=== PATIENT | male | born 1980 | race Caucasian/White ===

== ENCOUNTER 2018-09-08 13:23 | Outpatient (CLI) | payer OTHER ==
--- NOTE | 2018-09-08 16:04 | NM ---
EXAM: NM Hida Scan W Drug PROVIDED CLINICAL HISTORY: Right upper quadrant abdominal pain. COMPARISON: None FINDINGS: There is prompt uptake and excretion radiotracer by the liver. Bowel activity is faintly visualized b y approximately 11 minutes. Gallbladder activity is visualized by approximately 36 minutes with increasing activity in the gallbladder imaging up to 60 minutes. After 60 minutes of imaging, 8 ounce s of Ensure was administered by mouth. A gallbladder ejection fraction of 86% was obtained. Normal gallbladder ejection fraction is greater than 33%. IMPRESSION: 1. No evidence of a cystic or common duct obstruction. 2. Normal gallbladder ejection fraction.
== END 2018-09-08 13:24 | disposition home or self-care (01) ==
LOC: NM 13:23
PROVIDERS: ATTEND Internal Medicine Gastroenterology
DX: R10.11 Right upper quadrant pain (principal); R93.3 Abnormal findings on diagnostic imaging of other parts of digestive tract
CPT/HCPCS: 78227; A9537

== ENCOUNTER 2021-05-23 12:24 | Outpatient (CLI) | payer OTHER | END 2021-05-23 12:25 | disposition home or self-care (01) | LOC: ULT 12:24 | PROVIDERS: ATTEND Urology | DX: N50.89 Other specified disorders of the male genital organs (principal); N43.3 Hydrocele, unspecified; Z98.52 Vasectomy status | CPT/HCPCS: 76870; 93976 ==